=== PATIENT | female | born 1995 | race African-American/Black ===

== ENCOUNTER 2025-04-04 20:34 | Emergency (ER) | payer MEDICAID ==
[~2025-04-04] VITALS: Ht 170.2 cm; Wt 96.0 kg
[2025-04-04 20:39] VITALS: BP 126/75; PULSE 70; TEMP 36.4; O2SAT 100
[2025-04-04 23:21] VITALS: RESP 16
[2025-04-04] MEDS: LIDOCAINE 5% PATCH TOP SCH (23:21)
[2025-04-04] MEDS: KETOROLAC 30MG/ML VIAL IM ONE (23:22)
[2025-04-04] MEDS: CYCLOBENZAPRINE 10MG TABLET PO ONE (23:22)
[2025-04-04] MEDS: DEXAMETHASONE 10 MG/ML VIAL IM ONE (23:22)
[2025-04-05] MEDS: HYDROCODONE/ACETAMINOPHEN 5/325MG TABLET PO ONE (01:38)
[2025-04-05 01:40] LABS: CLARITY URINE CLOUDY (CLEAR); COLOR URINE YELLOW (YELLOW); GLUCOSE URINE NEGATIVE (NEGATIVE); KETONES URINE NEGATIVE (NEGATIVE); LEUKOCYTE ESTERASE URINE NEGATIVE (NEGATIVE); NITRITE URINE NEGATIVE (NEGATIVE); OCCULT BLOOD URINE NEGATIVE (NEGATIVE); PH URINE 8.5 (4.5-8.0); PROTEIN URINE NEGATIVE (NEGATIVE); SPECIFIC GRAVITY URINE 1.016 (1.005-1.030)
[2025-04-05] MEDS ORDERED: CYCL5TAB3 MT (01:52)
[2025-04-05] MEDS ORDERED: LIDO-53 TP (01:52)
[2025-04-05] MEDS ORDERED: NAPR-1176 MT (01:52)
[2025-04-05 02:06] LABS: AMORPHOUS SEDIMENT URINE 1+ /lpf; BACTERIA URINE 3+; RBC URINE 0-2 /hpf (0-2); SQUAMOUS EPITHELIAL CELL URINE FEW /lpf (RARE/1+); WBC URINE 0-2 /hpf (0-2)
== END 2025-04-05 02:07 | disposition home or self-care (01) ==
LOC: ER 20:34
DX: M51.26 Other intervertebral disc displacement, lumbar region (principal); Z79.899 Other long term (current) drug therapy
CPT/HCPCS: 99285; 81025; 96372; 72131; 81003; J1885; J1100